=== PATIENT | female | born 1980 | race Caucasian/White ===

== ENCOUNTER 2016-10-02 03:18 | Emergency (ER) | payer MEDICARE, MEDICAID ==
[~2016-10-02] VITALS: Ht 154.9 cm; Wt 45.0 kg
[~2016-10-02 03:18] MED LIST: ATEN50TA PO; COUM2TAB PO; COUM4TAB PO; CREON24 PO; DILA4TAB2 PO; GABA300C5 PO; MEDR4TAB PO; META10CA PO; PRED50 PO; SERO100T PO
[2016-10-02 03:33] VITALS: BP 156/110; PULSE 105; RESP 18; TEMP 98.5; O2SAT 98
[2016-10-02] MEDS ORDERED: [UNRECOGNIZED DRUG - CODE] IV (03:44)
[2016-10-02] MEDS ORDERED: COUM4TAB PO (03:45)
[2016-10-02] MEDS ORDERED: KETAMINE HCL 500 MG/10 ML VIAL ONE (03:57)
[2016-10-02] MEDS ORDERED: ONDANSETRON HCL 4 MG/2 ML VIAL IV PUSH ONE (04:00)
[2016-10-02] MEDS ORDERED: SODIUM CHLOR 0.9% 1000 ML INJ 1,000 ML IV ONE (04:00)
[2016-10-02] MEDS ORDERED: KETAMINE HCL 500 MG/5 ML VIAL IV PUSH ONE (04:00)
--- NOTE | 2016-10-02 04:23 | PD ---
HPI Chief Complaint: Abdominal Pain Time Seen by Provider: 03:44 Travel History International Travel<30 days: No Contact w/Intl Traveler<30days: No Traveled to known affect area: No History of Present Illness HPI 36 old woman with chronic recurrent abdominal pain attributed to chronic pancreatitis presents to the emergency department with the same. She states she 's been having worsening epigastric abdominal pain for the past day, so 1 PM or so. She's had nausea with it. No fevers or chills. No change in her bowel movements. She was seen apparently at the [facility] was discharged is before coming here. History Past Medical History Narrative Medical Chronic pancreatitis Dermatomyositis polymyositis Solitary kidney Pancreatic Divisum Hypertension ADHD Chronic opiate use PNEUMOCCOCAL Vaccine (Year): 2006 Menopausal: Yes : 0 Para: 0 Social History Alcohol Use: No Tobacco Use: No Allergies-Medications (Allergen,Severity, Reaction): Coded Allergies: Nonsteroidal Anti-Inflammatory Agts (Verified Allergy, Severe, ONLY ONE KIDNEY, 10/02/16) Stadol (Verified Allergy, Severe, Hallucinations, 10/02/16) Sulfa (Verified Allergy, Severe, HIVES, 10/02/16) Reported Meds & Prescriptions Reported Meds & Active Scripts Active Reported Coumadin (Warfarin) 4 Mg Tab 4 Mg PO DAILY Gammagard S/D Iga < 1 ug/ml Inj (Immune Globulin (Human) Iga < 1 ug/ml Inj) 10 Gm Inj 12 Gm IV MONTHLY Medrol (Methylprednisolone) 4 Mg Tab 4 Mg PO TID Dilaudid (Hydromorphone HCl) 4 Mg Tab 4 Mg PO Q4-6H PRN Gabapentin 300 Mg Cap 300 Mg PO TID Creon (Amylase/Lipase/Protease) 24,000-76,000-120,000 Units Cap 2 Cap PO TIDPC Atenolol 50 Mg Tab 50 Mg PO BID Metadate CD 24 HR (Methylphenidate HCl) 10 Mg Capcr 10 Mg PO DAILY Seroquel (Quetiapine Fumarate) 100 Mg Tab 100 Mg PO HS Review of Systems Except as stated in HPI: all other systems reviewed are Neg Physical Exam Narrative GENERAL: Thin 36 year-old woman, writhing in the bed, screaming. SKIN: Warm and dry. HEAD: Atraumatic. Normocephalic. CARDIOVASCULAR: Regular rate and rhythm. No murmur appreciated. RESPIRATORY: No accessory muscle use. Clear to auscultation. Breath sounds equal bilaterally. GASTROINTESTINAL: Admits flat and soft. A lot of voluntary guarding, significant diffuse tenderness. MUSCULOSKELETAL: No obvious deformities. Decreased muscle bulk. NEUROLOGICAL: Awake and alert. No obvious cranial nerve deficits. Motor grossly within normal limits. Normal speech. PSYCHIATRIC: Appropriate mood and affect; insight and judgment normal. Data Data Last Documented VS Vital Signs Date Time Temp Pulse Resp B/P Pulse Ox O2 Delivery O2 Flow Rate FiO2 10/02/16 05:07 18 10/02/16 04:29 118 164/106 97 10/02/16 03:33 98.5 Orders Complete Blood Count With Diff (10/02/16 03:52) Comprehensive Metabolic Panel (10/02/16 03:52) Lipase (10/02/16 03:52) Iv Access Insert/Monitor (10/02/16 03:52) Sodium Chlor 0.9% 1000 Ml Inj (Ns 1000 M (10/02/16 04:00) Ketamine Inj (Ketalar Inj) (10/02/16 04:00) Ondansetron Inj (Zofran Inj) (10/02/16 04:00) Ketamine Inj (Ketalar Inj) (10/02/16 03:57) Hydromorphone Pf Inj (Dilaudid Pf Inj) (10/02/16 04:30) Labs Laboratory Tests Test 10/02/16 04:00 White Blood Count 12.6 TH/MM3 Red Blood Count 4.68 MIL/MM3 Hemoglobin 13.9 GM/DL Hematocrit 41.8 % Mean Corpuscular Volume 89.3 FL Mean Corpuscular Hemoglobin 29.7 PG Mean Corpuscular Hemoglobin 33.3 % Concent Red Cell Distribution Width 13.6 % Platelet Count 187 TH/MM3 Mean Platelet Volume 9.6 FL Neutrophils (%) (Auto) 75.8 % Lymphocytes (%) (Auto) 14.6 % Monocytes (%) (Auto) 8.4 % Eosinophils (%) (Auto) 0.4 % Basophils (%) (Auto) 0.8 % Neutrophils # (Auto) 9.6 TH/MM3 Lymphocytes # (Auto) 1.8 TH/MM3 Monocytes # (Auto) 1.1 TH/MM3 Eosinophils # (Auto) 0.0 TH/MM3 Basophils # (Auto) 0.1 TH/MM3 CBC Comment DIFF FINAL Differential Comment Sodium Level 146 MEQ/L Potassium Level 3.3 MEQ/L Chloride Level 113 MEQ/L Carbon Dioxide Level 21.4 MEQ/L Anion Gap 12 MEQ/L Blood Urea Nitrogen 18 MG/DL Creatinine 1.43 MG/DL Estimat Glomerular Filtration 42 ML/MIN Rate Random Glucose 129 MG/DL Calcium Level 7.5 MG/DL Total Bilirubin 0.4 MG/DL Aspartate Amino Transf 19 U/L (AST/SGOT) Alanine Aminotransferase 18 U/L (ALT/SGPT) Alkaline Phosphatase 50 U/L Total Protein 6.0 GM/DL Albumin 3.1 GM/DL Lipase 279 U/L [facility] Medical Decision Making Medical Screen Exam Complete: Yes Emergency Medical Condition: Yes Interpretation(s) LABS: CBC remarkable for mild leukocytosis. CMP remarkable for elevated creatinine. Lipase normal Differential Diagnosis Acute recurrent abdominal pain, pancreatitis, gastritis, opiate withdrawal, other Narrative Course Medical decision making 36 year-old woman chronic recurrent abdominal pain, treated chronic pancreatitis , presents with the same. Just discharged from the [facility] ED. Complaining of ongoing pain. Diagnosis Primary Impression: Chronic pain Qualified Code: G89.4 - Chronic pain syndrome Additional Impression: Pancreatitis, chronic Qualified Code: K86.1 - Chronic pancreatitis, unspecified pancreatitis type Additional Instructions: Continue Dilaudid as previously prescribed. Use Zofran if needed for nausea or vomiting. Follow-up with your primary doctor. Med/Other Pt SpecificInfo: Prescription(s) given Disposition: 01 DISCHARGE HOME Condition: Stable Jarred Caicedo MD Oct 02, 2016 04:23
[2016-10-02 04:29] VITALS: BP 164/106; PULSE 118; RESP 18; O2SAT 97
[2016-10-02] MEDS ORDERED: HYDROmorphone HCL PF 1 MG/ML VIAL IVS ONE ×2 (04:30→06:00)
[2016-10-02 04:55] LABS: AUTOMATED NEUTROPHIL # 9.6 TH/MM3 (1.8-7.7); BASOPHIL # 0.1 TH/MM3 (0-0.2); BASOPHIL % 0.8 % (0.0-2.0); EOSINOPHIL % 0.4 % (0.0-4.0); HEMATOCRIT 41.8 % (35.0-46.0); HEMO FLAGS DIFF FINAL; LYMPH % 14.6 % (9.0-44.0); LYMPHOCYTE # 1.8 TH/MM3 (1.0-4.8); MEAN CELL VOLUME 89.3 FL (80.0-100.0); MEAN CORPUSCULAR HEMOGLOBIN 29.7 PG (27.0-34.0); MEAN CORPUSCULAR HGB CONC 33.3 % (32.0-36.0); MONO % 8.4 % (0.0-8.0); NEUT % 75.8 % (16.0-70.0); PLATELET COUNT 187 TH/MM3 (150-450); RED BLOOD COUNT 4.68 MIL/MM3 (4.00-5.30); RED CELL DISTRIBUTION WIDTH 13.6 % (11.6-17.2); WHITE BLOOD COUNT 12.6 TH/MM3 (4.0-11.0)
[2016-10-02 05:23] LABS: ANION GAP 12 MEQ/L (5-15); AST (GOT) 19 U/L (15-37); BICARBONATE 21.4 MEQ/L (21.0-32.0); BLOOD UREA NITROGEN 18 MG/DL (7-18); CHLORIDE 113 MEQ/L (98-107); GLOMERULAR FILTRATION RATE 42 ML/MIN (>89); POTASSIUM 3.3 MEQ/L (3.5-5.1); SODIUM (NA) 146 MEQ/L (136-145)
[2016-10-02 05:26] LABS: ALKALINE PHOSPHATASE 50 U/L (45-117); ALT (GPT) 18 U/L (10-53); TOTAL BILIRUBIN ADULT 0.4 MG/DL (0.2-1.0)
[2016-10-02] MEDS ORDERED: ZOFR4TAB3 SL (05:56)
[2016-10-02] MEDS ORDERED: SODIUM CHLORIDE 0.9% FLUSH 5 ML FLUSH IVF PRN (06:00)
[2016-10-02 06:57] VITALS: RESP 18
[2017-02-02] MEDS ORDERED: MEDR4TAB PO (17:37)
[2017-02-02] MEDS ORDERED: NEUR300C PO (17:37)
[2017-02-02] MEDS ORDERED: HYDR4TAB PO (17:37)
[2017-02-02] MEDS ORDERED: ZOFR4TAB PO (18:53)
[2017-02-02] MEDS ORDERED: MEDR4PAK PO (18:53)
[2017-02-28] MEDS ORDERED: MEDR4PAK PO (16:42)
[2017-02-28] MEDS ORDERED: ZOFR4TAB3 SL (16:42)
[2017-02-28] MEDS ORDERED: PERC5TAB12 PO (16:42)
== END 2016-10-02 06:58 | disposition home or self-care (01) ==
LOC: NEPC 03:18
DX: G89.4 Chronic pain syndrome (principal); K86.1 Other chronic pancreatitis
CPT/HCPCS: 80053; 83690; 85025; 96361; 96374; 96375; 96376; 99284; J1170; J1642; J2405; J7030

== ENCOUNTER 2016-10-18 23:40 | Emergency (ER) | payer MEDICARE, MEDICAID ==
[~2016-10-18] VITALS: Ht 154.9 cm; Wt 37.5 kg
[~2016-10-18 23:40] MED LIST changes: -COUM2TAB PO; -PRED50 PO; +ZOFR4TAB3 SL; +[UNRECOGNIZED DRUG - CODE] IV
[2016-10-18 23:44] VITALS: BP 180/122; PULSE 96; RESP 24; TEMP 98; O2SAT 95
[2016-10-19] MEDS ORDERED: SODIUM CHLOR 0.9% 1000 ML INJ 1,000 ML IV SCH (01:09)
[2016-10-19] MEDS ORDERED: SODIUM CHLORIDE 0.9% FLUSH 5 ML FLUSH IVF PRN (01:15)
[2016-10-19] MEDS ORDERED: ONDANSETRON HCL 4 MG/2 ML VIAL IVP ONE (01:15)
[2016-10-19] MEDS ORDERED: MORPHINE SULFATE 4 MG/ML INJ IV PUSH ONE (01:15)
--- NOTE | 2016-10-19 01:45 | PD ---
HPI Chief Complaint: Abdominal Pain Time Seen by Provider: 00:11 Travel History International Travel<30 days: No Contact w/Intl Traveler<30days: No Traveled to known affect area: No History of Present Illness HPI The patient is a 36 year old female who presents to the [facility] emergency department with a history of abdominal pain that began again at 2 PM today. She reports that it is present in the left upper quadrant of the abdomen and radiates through to her back. The patient does have a history of chronic recurrent abdominal pain and a history of pancreatitis. She reports that she was seen over at [facility] for evaluation earlier this evening and had laboratory studies done as well as a CT scan of the abdomen and pelvis for evaluation. The patient reports that she was diagnosed with pancreatitis, however the hospitalist would not admitted to the hospital. She reports that she's had nausea and vomiting 2. She reports that she was provided morphine and Zofran for pain and nausea respectively at that facility. She denies having any diarrhea. Her last bowel movement was earlier this morning. She denies having any blood in her stool or black or tarry stools. The patient denies any recent fevers, cough, congestion, neck pain, chest pain, shortness of breath, diarrhea, urinary symptoms, or neurologic symptoms. The patient reports that she does administer feedings by her feeding tube at night, 4 cans of shake. She reports that throughout the day she is able to eat orally. [facility] Past Medical History Narrative Medical The patient's past medical history is significant for chronic abdominal pain, chronic pancreatitis, history of pancreatic divisum, history of dermatomyositis , polymyositis, solitary kidney, hypertension, attention deficit hyperactivity disorder, history of chronic pain with chronic opiate use Hx Anticoagulant Therapy: Yes ADHD: Yes Anemia: Yes Arthritis: No Asthma: No Autoimmune Disease: Yes (panceatisis ) Blood Disorders: No Anxiety: No Depression: Yes Heart Rhythm Problems: No Cancer: No Cardiovascular Problems: Yes High Cholesterol: No Chemotherapy: No Chest Pain: No Congestive Heart Failure: No COPD: Yes Cerebrovascular Accident: No Diabetes: No Diminished Hearing: No Diverticulitis: Yes Endocrine: No Gastrointestinal Disorders: Yes (H/O ABD PAIN, INGUINAL HERNIA REPAIR) GERD: No Genitourinary: Yes (only has left kidney ) Headaches: No Hiatal Hernia: No Hypertension: Yes Immune Disorder: Yes (DERMATOMYOSITIS) Inguinal Hernia: Yes (2005) Implanted Vascular Access Dvce: Yes (PORT-RIGHT CHEST) Kidney Stones: No Musculoskeletal: Yes (polymyositis) Neurologic: Yes (neuromuscular diseases) Psychiatric: No Reproductive: Yes (ENDOMETRIOSIS) Respiratory: Yes Integumentary: Yes Immunizations Current: Yes Migraines: No Pancreatitis: Yes Pneumonia: Yes Radiation Therapy: No Renal Failure: No Seizures: No Sickle Cell Disease: No Sleep Apnea: No Thyroid Disease: No Ulcer: No PNEUMOCCOCAL Vaccine (Year): 2006 ?: Not Menopausal: Yes : 0 Para: 0 Miscarriage: 0 : 0 Ovarian Cysts: Yes (2004) Past Surgical History Narrative Surgical The patient has had an [id number] placed, and creatinine extent placed, hysterectomy, ovarian cyst resection, right inguinal hernia repair, feeding tube placement. Abdominal Surgery: Yes (INGUINAL HERNIA REPAIR RT;G-J TUBE PLACE) AICD: No Arteriovenous Shunt: No Body Medical Devices: stent in pancreatus and gi feeding tube Cardiac Surgery: No Cholecystectomy: Yes Ear Surgery: No Endocrine Surgery: No Eye Surgery: No Genitourinary Surgery: No Gynecologic Surgery: Yes (OVARIAN CYST REMOVAL 2004, Hysterectomy) Hysterectomy: Yes Insulin Pump: No Joint Replacement: No Neurologic Surgery: No Oral Surgery: Yes (tooth extractions) Pacemaker: No Thoracic Surgery: No Other Surgery: Yes (STENT IN PANCREAS, PORT R SUBCLAVIAN PLACEMENT ) Social History Alcohol Use: No Tobacco Use: No Substance Use: No Allergies-Medications (Allergen,Severity, Reaction): Coded Allergies: Nonsteroidal Anti-Inflammatory Agts (Verified Allergy, Severe, ONLY ONE KIDNEY, 10/18/16) Stadol (Verified Allergy, Severe, Hallucinations, 10/18/16) Sulfa (Verified Allergy, Severe, HIVES, 10/18/16) Reported Meds & Prescriptions Reported Meds & Active Scripts Active Keflex (Cephalexin) 500 Mg Cap 500 Mg PO Q8H Phenergan Supp (Promethazine HCl) 12.5 Mg Supp 12.5 Mg RECTAL Q6H PRN Zofran Odt (Ondansetron Odt) 4 Mg Tab 4 Mg SL Q8HR PRN May substitute non-ODT form. Reported Coumadin (Warfarin) 4 Mg Tab 4 Mg PO DAILY Gammagard S/D Iga < 1 ug/ml Inj (Immune Globulin (Human) Iga < 1 ug/ml Inj) 10 Gm Inj 12 Gm IV MONTHLY Medrol (Methylprednisolone) 4 Mg Tab 4 Mg PO TID Dilaudid (Hydromorphone HCl) 4 Mg Tab 4 Mg PO Q4-6H PRN Gabapentin 300 Mg Cap 300 Mg PO TID Creon (Amylase/Lipase/Protease) 24,000-76,000-120,000 Units Cap 2 Cap PO TIDPC Atenolol 50 Mg Tab 50 Mg PO BID Metadate CD 24 HR (Methylphenidate HCl) 10 Mg Capcr 10 Mg PO DAILY Seroquel (Quetiapine Fumarate) 100 Mg Tab 100 Mg PO HS Review of Systems Except as stated in HPI: all other systems reviewed are Neg General / Constitutional: No: Fever Eyes: No: Visual changes HENT: No: Headaches Cardiovascular: No: Chest Pain or Discomfort Respiratory: No: Shortness of Breath Gastrointestinal: Positive: Nausea, Vomiting, Abdominal Pain, No: Diarrhea, Constipation, Changes in Bowel Habits, Indigestion, Loss of Appetite Genitourinary: No: Dysuria Musculoskeletal: No: Pain Skin: No Rash Neurologic: No: Weakness Psychiatric: No: Depression Endocrine: No: Polydipsia Hematologic/Lymphatic: No: Easy Bruising Physical Exam Narrative General: The patient is a well-developed thin appearing female, reportedly in significant pain, standing beside the bed on my arrival to the room. Head and Neck exam: Head is normocephalic atraumatic. Eyes: EOMI, pupils are equal round and reactive to light. Nose: Midline septum with pink mucous membranes Mouth: Dentition unremarkable. Moist mucus membranes. Posterior oropharynx is not erythematous. No tonsillar hypertrophy. Uvula midline. Airway patent. Neck: No palpable lymphadenopathy. No nuchal rigidity. No thyromegaly. Cardiovascular: Regular rate and rhythm without murmurs, gallops, or rubs. Lungs: Clear to auscultation bilaterally. No wheezes, rhonchi, or rales. Abdomen: Soft, with reported discomfort on palpation in the midepigastric and left upper quadrant of the abdomen. No other tenderness on palpation of the other 3 quadrants of the abdomen. No tenderness on palpation of McBurney's point. No guarding, rebound, or rigidity. Normal bowel sounds are audible. Negative Prasad's sign. She has a feeding tube in place in the left upper quadrant of the abdomen that appears to be in good repair. Extremities: No clubbing, cyanosis, or edema. 2+ pulses in all 4 extremities. No calf tenderness on palpation. Back: No spinous process tenderness to palpation. No costovertebral angle tenderness to palpation. Neurologic Exam: Grossly nonfocal. Skin Exam: No rash noted. Intact skin that is warm and dry. Data Data Last Documented VS Vital Signs Date Time Temp Pulse Resp B/P Pulse Ox O2 Delivery O2 Flow Rate FiO2 10/19/16 03:10 107 22 98 10/19/16 03:10 176/92 10/18/16 23:44 98.0 Room Air Orders Comprehensive Metabolic Panel (10/19/16 01:09) Lipase (10/19/16 01:09) Prothrombin Time / Inr (Pt) (10/19/16 01:09) Iv Access Insert/Monitor (10/19/16 01:09) Ecg Monitoring (10/19/16 01:09) Oximetry (10/19/16 01:09) Morphine Inj (Morphine Inj) (10/19/16 01:15) Ondansetron Inj (Zofran Inj) (10/19/16 01:15) Sodium Chlor 0.9% 1000 Ml Inj (Ns 1000 M (10/19/16 01:09) Sodium Chloride 0.9% Flush (Ns Flush) (10/19/16 01:15) Sodium Chlorid 0.9% 500 Ml Inj (Ns 500 M (10/19/16 03:00) Ceftriaxone Inj (Rocephin Inj) (10/19/16 03:00) Hydromorphone Pf Inj (Dilaudid Pf Inj) (10/19/16 03:00) Heparin Central Flush (Heparin Central F (10/19/16 03:00) Labs Laboratory Tests Test 10/19/16 01:45 Prothrombin Time 12.2 SEC Prothromb Time International 1.1 RATIO Ratio Sodium Level 143 MEQ/L Potassium Level 3.8 MEQ/L Chloride Level 107 MEQ/L Carbon Dioxide Level 28.3 MEQ/L Anion Gap 8 MEQ/L Blood Urea Nitrogen 15 MG/DL Creatinine 1.61 MG/DL Estimat Glomerular Filtration 37 ML/MIN Rate Random Glucose 92 MG/DL Calcium Level 8.4 MG/DL Total Bilirubin 0.3 MG/DL Aspartate Amino Transf 29 U/L (AST/SGOT) Alanine Aminotransferase 21 U/L (ALT/SGPT) Alkaline Phosphatase 53 U/L Total Protein 7.4 GM/DL Albumin 3.6 GM/DL Lipase 315 U/L MDM Medical Decision Making Medical Screen Exam Complete: Yes Emergency Medical Condition: Yes Medical Record Reviewed: Yes Interpretation(s) Laboratory Tests Test 10/19/16 01:45 Prothrombin Time 12.2 SEC Prothromb Time International 1.1 RATIO Ratio Sodium Level 143 MEQ/L Potassium Level 3.8 MEQ/L Chloride Level 107 MEQ/L Carbon Dioxide Level 28.3 MEQ/L Anion Gap 8 MEQ/L Blood Urea Nitrogen 15 MG/DL Creatinine 1.61 MG/DL Estimat Glomerular Filtration 37 ML/MIN Rate Random Glucose 92 MG/DL Calcium Level 8.4 MG/DL Total Bilirubin 0.3 MG/DL Aspartate Amino Transf 29 U/L (AST/SGOT) Alanine Aminotransferase 21 U/L (ALT/SGPT) Alkaline Phosphatase 53 U/L Total Protein 7.4 GM/DL Albumin 3.6 GM/DL Lipase 315 U/L Differential Diagnosis Acute pancreatitis, versus exacerbation of chronic pancreatitis, versus pyelonephritis, versus kidney stone, versus peptic ulcer disease, versus acid reflux Narrative Course During the course of the patients emergency department visit, the patients history, examination, and differential diagnosis were reviewed with the patient. The patient had IV access obtained and blood work sent for analysis. The patient was placed on a assembler finger buffs with oximetry and blood pressure monitoring. The patient signed consent for us to obtain records from the other facility. The patient was provided normal saline 1 L IV fluid bolus, morphine for pain, Zofran for nausea. The patient had continued pain and was given hydromorphone 1 mg IV, normal saline another 500 mL bolus was administered 1. The patient's records from the other facility arrived and were reviewed. The patient at that facility had a white count of 15.3, hemoglobin 15.1, platelets 273 with neutrophil percent of 81, lymphocytes 6, monocytes 7, urinalysis reveals 2+ protein 1 WBC less than 1 rbc 2+ bacteria trace squamous epithelial cells, culture indicated. CT scan of the abdomen and pelvis done at that facility revealed no hydronephrosis or nephrolithiasis, uncomplicated colonic diverticulosis, post right nephrectomy, gastrojejunostomy tube appears within adequate position. No other acute abnormality. The patients laboratory studies at this facility revealed a CMP remarkable for creatinine of 1.61 compared to previously at 1.43, LFTs within normal limits, lipase within normal limits at 3:15, INR 1.1. The patient's results were discussed with her, her questions were answered. The patient denies being placed on an antibiotic at the other facility. The patient will be discharged home on antibiotic. The patient's symptoms are likely related to an exacerbation of her chronic pain. The patient was instructed regarding the importance of pushing fluids and getting plenty of rest. The patient reports that she has Zofran at home for nausea, hydromorphone at home for pain. The patient will be given a prescription for Phenergan suppositories to be used as needed for nausea if it is uncontrolled with Zofran. The patient is resting comfortably and feels better, is alert and in no distress. The patients results and examination findings were discussed with the patient. The repeat examination is unremarkable and benign. The history, exam, diagnostic testing, and current condition do not suggest any significant pathology to warrant further testing, continued ED treatment, admission, or surgical evaluation at this point. The vital signs have been stable. The patient does not have uncontrollable pain, intractable vomiting, or other significant symptoms. The patient's condition is stable and appropriate for discharge. The patient will pursue further outpatient evaluation with a primary care physician or other designated or consulting physician as indicated in the discharge instructions. The patient expressed understanding and was agreeable with this plan. Diagnosis Primary Impression: Abdominal pain Qualified Code: R10.12 - Left upper quadrant pain Additional Impression: Vomiting Qualified Code: R11.2 - Non-intractable vomiting with nausea, unspecified vomiting type Referrals: Primary Care Physician Patient Instructions: Abdominal Pain (ED), General Instructions, Urinary Tract Infection in Women (ED) Med/Other Pt SpecificInfo: Prescription(s) given Scripts Cephalexin (Keflex)500 Mg [id number] Mg PO Q8H #30 CAP Ref 0 Prov:Adrienne Dubois MD 10/19/16 Promethazine Supp (Phenergan Supp)12.5 Mg Supp12.5 Mg RECTAL Q6H PRN (NAUSEA OR VOMITING) #7 SUPP Ref 0 Prov:Adrienne Dubois MD 10/19/16 Disposition: DISCHARGE HOME Condition: Stable Adrienne Dubois MD Oct 19, 2016 01:45
[2016-10-19 02:05] LABS: INTERNATIONAL NORMALIZED RATIO 1.1 RATIO; PROTHROMBIN TIME - PATIENT 12.2 SEC (9.8-11.6)
[2016-10-19 02:08] LABS: ALKALINE PHOSPHATASE 53 U/L (45-117); TOTAL BILIRUBIN ADULT 0.3 MG/DL (0.2-1.0)
[2016-10-19 02:11] LABS: ALT (GPT) 21 U/L (10-53); ANION GAP 8 MEQ/L (5-15); AST (GOT) 29 U/L (15-37); BICARBONATE 28.3 MEQ/L (21.0-32.0); BLOOD UREA NITROGEN 15 MG/DL (7-18); CHLORIDE 107 MEQ/L (98-107); GLOMERULAR FILTRATION RATE 37 ML/MIN (>89); POTASSIUM 3.8 MEQ/L (3.5-5.1); SODIUM (NA) 143 MEQ/L (136-145)
[2016-10-19] MEDS ORDERED: PROM2SUP RECTAL (02:55)
[2016-10-19] MEDS ORDERED: CEPH-460 PO (02:55)
[2016-10-19] MEDS ORDERED: SODIUM CHLORID 0.9% 500 ML INJ 500 ML IV ONE (03:00)
[2016-10-19] MEDS ORDERED: cefTRIAXone INJ 1,000 MG in SODIUM CHLORIDE 0.9% INJ 100 ML IV ONE (03:00)
[2016-10-19] MEDS ORDERED: HYDROmorphone HCL PF 1 MG/ML VIAL IV PUSH ONE (03:00)
[2016-10-19 03:10] VITALS: BP 176/92; PULSE 100; PULSE 107; RESP 18; RESP 22; O2SAT 98; O2SAT 99
[2017-02-02] MEDS ORDERED: MEDR4TAB PO (17:37)
[2017-02-02] MEDS ORDERED: HYDR4TAB PO (17:37)
[2017-02-02] MEDS ORDERED: NEUR300C PO (17:37)
[2017-02-02] MEDS ORDERED: ZOFR4TAB PO (18:53)
[2017-02-02] MEDS ORDERED: MEDR4PAK PO (18:53)
[2017-02-28] MEDS ORDERED: PERC5TAB12 PO (16:42)
[2017-02-28] MEDS ORDERED: MEDR4PAK PO (16:42)
[2017-02-28] MEDS ORDERED: ZOFR4TAB3 SL (16:42)
== END 2016-10-19 03:47 | disposition home or self-care (01) ==
LOC: NEPE 23:40
DX: R10.12 Left upper quadrant pain (principal); R11.2 Nausea with vomiting, unspecified; I10 Essential (primary) hypertension; F90.9 Attention-deficit hyperactivity disorder, unspecified type; Z79.01 Long term (current) use of anticoagulants; D64.9 Anemia, unspecified; J44.9 Chronic obstructive pulmonary disease, unspecified; Z87.19 Personal history of other diseases of the digestive system
CPT/HCPCS: 80053; 83690; 84703; 85610; 96361; 96365; 96375; 99284; J0696; J1170; J1642; J2270; J2405; J7030; J7040

== ENCOUNTER 2016-12-23 13:46 | Emergency (ER) | payer MEDICARE, MEDICAID ==
[~2016-12-23] VITALS: Ht 154.9 cm; Wt 38.0 kg
[~2016-12-23 13:46] MED LIST changes: +CEPH-460 PO; +PROM2SUP RECTAL
[2016-12-23 13:49] VITALS: BP 227/123; PULSE 148; RESP 24; TEMP 98.3; O2SAT 99
--- NOTE | 2016-12-23 14:04 | PD ---
Physical Exam Date Seen by Provider: Dec 23, 2016 Time Seen by Provider: 14:00 Narrative Pt is a 36 year old female presenting to the ED with c/o abdominal pain, nausea and vomiting. Symptoms started Wednesday. Pain is in the LUQ radiating to her back. pain is a 10/10. Pt has dilaudid and zofran at home for chronic pancreatitis. Pt waited because she thought it would ease up. Reports chills and diaphoresis. Pt born with only one kidney, denies any renal issues otherwise. Hysterectomy 4 years ago. Pt appears very uncomfortable, BP markedly elevated. Accompanied by family. Data Data Last Documented VS Vital Signs Date Time Temp Pulse Resp B/P Pulse Ox O2 Delivery O2 Flow Rate FiO2 12/23/16 13:49 98.3 148 24 227/123 99 Room Air MDM Supervised Visit with JOCE: Pebbles Orellana Dec 23, 2016 14:04
--- NOTE | 2016-12-23 14:57 | PD ---
HPI Chief Complaint: abd pain Time Seen by Provider: 14:56 Travel History International Travel<30 days: No Contact w/Intl Traveler<30days: No Traveled to known affect area: No History of Present Illness HPI 36-year-old female with history of chronic pancreatitis which she states is autoimmune, hypertension, COPD, diverticulitis, pancreatitis, gastroparesis with PEG tube in place, cholecystectomy, polymyositis presents to emergency department for evaluation of left upper quadrant abdominal pain. Patient states that she has been driving all night going [facility], [place] and [place] her most recent trying to get pain medication for her abdominal pain however she states they have not given her anything. She is requesting IV Dilaudid or IV morphine by the name. She states that "Toradol doesn't work." Patient states she has been nauseous and unable to keep her prescribed Dilaudid down. Patient states the pain is 10 out of 10, and constant. No hematemesis or hematochezia. No changes in bowel. No fever or chills. No other symptoms to report PFSH Past Medical History Hx Anticoagulant Therapy: Yes ADHD: Yes Anemia: Yes Arthritis: No Asthma: No Autoimmune Disease: Yes (panceatisis ) Blood Disorders: No Anxiety: No Depression: Yes Heart Rhythm Problems: No Cancer: No Cardiovascular Problems: Yes High Cholesterol: No Chemotherapy: No Chest Pain: No Congestive Heart Failure: No COPD: Yes Cerebrovascular Accident: No Diabetes: No Diminished Hearing: No Diverticulitis: Yes Endocrine: No Gastrointestinal Disorders: Yes (H/O ABD PAIN, INGUINAL HERNIA REPAIR) GERD: No Genitourinary: Yes (only has left kidney ) Headaches: No Hiatal Hernia: No Hypertension: Yes Immune Disorder: Yes (DERMATOMYOSITIS) Inguinal Hernia: Yes (2005) Implanted Vascular Access Dvce: Yes (PORT-RIGHT CHEST) Kidney Stones: No Musculoskeletal: Yes (polymyositis) Neurologic: Yes (neuromuscular diseases) Psychiatric: No Reproductive: Yes (ENDOMETRIOSIS) Respiratory: No Integumentary: Yes Immunizations Current: Yes Migraines: No Pancreatitis: Yes Pneumonia: Yes Radiation Therapy: No Renal Failure: No Seizures: No Sickle Cell Disease: No Sleep Apnea: No Thyroid Disease: No Ulcer: No PNEUMOCCOCAL Vaccine (Year): 2006 ?: Not LMP: NONE Menopausal: Yes : 0 Para: 0 Miscarriage: 0 : 0 Ovarian Cysts: Yes (2004) Past Surgical History Abdominal Surgery: Yes (INGUINAL HERNIA REPAIR RT;G-J TUBE PLACE) AICD: No Arteriovenous Shunt: No Body Medical Devices: stent in pancreatus and gi feeding tube Cardiac Surgery: No Cholecystectomy: Yes Ear Surgery: No Endocrine Surgery: No Eye Surgery: No Genitourinary Surgery: No Gynecologic Surgery: Yes (OVARIAN CYST REMOVAL 2004, Hysterectomy) Hysterectomy: Yes (4 YEARS AGO FOR ENDOMETRIOSIS.) Insulin Pump: No Joint Replacement: No Neurologic Surgery: No Oral Surgery: Yes (tooth extractions) Pacemaker: No Thoracic Surgery: No Other Surgery: Yes (STENT IN PANCREAS, PORT R SUBCLAVIAN PLACEMENT ) Social History Alcohol Use: No Tobacco Use: No Substance Use: No Allergies-Medications (Allergen,Severity, Reaction): Coded Allergies: Nonsteroidal Anti-Inflammatory Agts (Verified Allergy, Severe, ONLY ONE KIDNEY, 10/18/16) Stadol (Verified Allergy, Severe, Hallucinations, 10/18/16) Sulfa (Verified Allergy, Severe, HIVES, 10/18/16) Reported Meds & Prescriptions Reported Meds & Active Scripts Active Phenergan Supp (Promethazine HCl) 12.5 Mg Supp 12.5 Mg RECTAL Q6H PRN Zofran Odt (Ondansetron Odt) 4 Mg Tab 4 Mg SL Q8HR PRN May substitute non-ODT form. Reported Warfarin 3 Mg Tab 3 Mg PO DAILY Gammagard S/D Iga < 1 ug/ml Inj (Immune Globulin (Human) Iga < 1 ug/ml Inj) 10 Gm Inj 12 Gm IV MONTHLY Medrol (Methylprednisolone) 4 Mg Tab 4 Mg PO TID Dilaudid (Hydromorphone HCl) 4 Mg Tab 4 Mg PO Q4-6H PRN Gabapentin 300 Mg Cap 300 Mg PO TID Creon (Amylase/Lipase/Protease) 24,000-76,000-120,000 Units Cap 2 Cap PO TIDPC Atenolol 50 Mg Tab 50 Mg PO BID Metadate CD 24 HR (Methylphenidate HCl) 10 Mg Capcr 10 Mg PO DAILY Seroquel (Quetiapine Fumarate) 100 Mg Tab 100 Mg PO HS Warfarin 4 Mg Tab 4 Mg PO DAILY Review of Systems Except as stated in HPI: all other systems reviewed are Neg Physical Exam Narrative GENERAL: Thin female patient, sitting up in the bed, intermittently moaning and crying when staff walk by. SKIN: Focused skin assessment warm/dry. HEAD: Atraumatic. Normocephalic. EYES: Pupils equal and round. No scleral icterus. No injection or drainage. ENT: No nasal bleeding or discharge. Mucous membranes pink and moist. NECK: Trachea midline. No JVD. CARDIOVASCULAR: Tachycardic rate and rhythm. RESPIRATORY: No accessory muscle use. Clear to auscultation. Breath sounds equal bilaterally. GASTROINTESTINAL: Abdomen soft, nondistended. G-tube in place. Patient will not allow me to palpate her abdomen. Hepatic and splenic margins not palpable. MUSCULOSKELETAL: No obvious deformities. No clubbing. No cyanosis. No edema. Right lower extremity cast in place. NEUROLOGICAL: Awake and alert. No obvious cranial nerve deficits. Motor grossly within normal limits. Normal speech. . Data Data Last Documented VS Vital Signs Date Time Temp Pulse Resp B/P Pulse Ox O2 Delivery O2 Flow Rate FiO2 12/23/16 13:49 98.3 148 24 227/123 99 Room Air Orders Complete Blood Count With Diff (12/23/16 14:04) Comprehensive Metabolic Panel (12/23/16 14:04) Lipase (12/23/16 14:04) Iv Access Insert/Monitor (12/23/16 14:53) Sodium Chlor 0.9% 1000 Ml Inj (Ns 1000 M (12/23/16 15:00) Prochlorperazine Inj (Compazine Inj) (12/23/16 15:00) Diphenhydramine Inj (Benadryl Inj) (12/23/16 15:00) Acetaminophen 650 Mg/20 Ml Liq (Tylenol (12/23/16 16:45) Heparin Central Flush (Heparin Central F (12/23/16 17:15) Labs Laboratory Tests Test 12/23/16 15:35 White Blood Count 11.9 TH/MM3 Red Blood Count 4.76 MIL/MM3 Hemoglobin 13.7 GM/DL Hematocrit 42.6 % Mean Corpuscular Volume 89.4 FL Mean Corpuscular Hemoglobin 28.7 PG Mean Corpuscular Hemoglobin 32.1 % Concent Red Cell Distribution Width 13.6 % Platelet Count 215 TH/MM3 Mean Platelet Volume 9.4 FL Neutrophils (%) (Auto) 95.9 % Lymphocytes (%) (Auto) 1.5 % Monocytes (%) (Auto) 2.1 % Eosinophils (%) (Auto) 0.0 % Basophils (%) (Auto) 0.5 % Neutrophils # (Auto) 11.4 TH/MM3 Lymphocytes # (Auto) 0.2 TH/MM3 Monocytes # (Auto) 0.2 TH/MM3 Eosinophils # (Auto) 0.0 TH/MM3 Basophils # (Auto) 0.1 TH/MM3 CBC Comment DIFF FINAL Differential Comment Sodium Level 142 MEQ/L Potassium Level 3.8 MEQ/L Chloride Level 110 MEQ/L Carbon Dioxide Level 22.5 MEQ/L Anion Gap 10 MEQ/L Blood Urea Nitrogen 11 MG/DL Creatinine 1.55 MG/DL Estimat Glomerular Filtration 38 ML/MIN Rate Random Glucose 135 MG/DL Calcium Level 8.8 MG/DL Total Bilirubin 0.5 MG/DL Aspartate Amino Transf 38 U/L (AST/SGOT) Alanine Aminotransferase 26 U/L (ALT/SGPT) Alkaline Phosphatase 68 U/L Total Protein 6.8 GM/DL Albumin 3.5 GM/DL Lipase 406 U/L [facility] Medical Decision Making Medical Screen Exam Complete: Yes Emergency Medical Condition: Yes Medical Record Reviewed: Yes Differential Diagnosis Acute on chronic pancreatitis versus gastritis versus peritonitis versus narcotic seeking Narrative Course 36-year-old female presents to the emergency department requesting IV Dilaudid or IV morphine by name for pain control of her pancreatitis which is chronic. This is the third hospital the patient can name that she has been to within the last 8 hours but states she has been driving "all night" going to hospitals trying to get pain control for this. Patient has not vomited since being in the emergency department room. She is given Compazine and Benadryl to help with her nausea. She is given IV fluids. I discussed the patient of my attending physician who is familiar with her and states she will not be getting any narcotic pain control here in this emergency department. I explained this to the patient and offered Toradol which she states she is not allergic to but states that it does not work. I offered her Tylenol which she refused. Patient is tachycardic and hypertensive initially. After IV fluid bolus, heart rate does decrease to 103 bpm. I did go ahead and order Tylenol for pain control but the patient is refusing this. After review of the lab work, there is no significant leukocytosis. CMP is without acute concern. Her lipase is elevated at 406 however it has been this in the past with a history of chronic pancreatitis this would likely be expected. I discussed this with the attending physician. He agrees there is no acute findings to support hospitalization. This was again discussed with the patient who did request to speak with the physician, demanding that she needed "IV Dilaudid or morphine" for pain control. My attending physician states that he will not be discussing this any further with her. The patient is made aware of this. She is encouraged to take her prescribed Dilaudid as she has not had any episodes of vomiting since she has been in the emergency department. He has a prescription for Zofran at home She'll be discharged at this time. Diagnosis Primary Impression: Pancreatitis, chronic Qualified Code: K86.1 - Chronic pancreatitis, unspecified pancreatitis type Referrals: [employer] Primary Care Physician Patient Instructions: General Instructions, Pancreatitis (ED) Additional Instructions: Continue medication as already prescribed Follow-up with your primary care provider Return immediately with any acute worsening of symptoms Med/Other Pt SpecificInfo: No Change to Meds Disposition: 01 DISCHARGE HOME Condition: Stable Mamie Loco Dec 23, 2016 14:56
[2016-12-23] MEDS ORDERED: diphenhydrAMINE HCL 50 MG/ML VIAL IV PUSH ONE (15:00)
[2016-12-23] MEDS ORDERED: SODIUM CHLOR 0.9% 1000 ML INJ 1,000 ML IV ONE (15:00)
[2016-12-23] MEDS ORDERED: PROCHLORPERAZINE INJ 10 MG/2 ML VIAL IV PUSH ONE (15:00)
[2016-12-23] MEDS ORDERED: WARF-58 PO (15:30)
[2016-12-23] MEDS ORDERED: WARF-20 PO (15:30)
[2016-12-23 15:46] LABS: AUTOMATED NEUTROPHIL # 11.4 TH/MM3 (1.8-7.7); BASOPHIL # 0.1 TH/MM3 (0-0.2); BASOPHIL % 0.5 % (0.0-2.0); HEMATOCRIT 42.6 % (35.0-46.0); HEMO FLAGS DIFF FINAL; LYMPH % 1.5 % (9.0-44.0); LYMPHOCYTE # 0.2 TH/MM3 (1.0-4.8); MEAN CELL VOLUME 89.4 FL (80.0-100.0); MEAN CORPUSCULAR HEMOGLOBIN 28.7 PG (27.0-34.0); MEAN CORPUSCULAR HGB CONC 32.1 % (32.0-36.0); MONO % 2.1 % (0.0-8.0); NEUT % 95.9 % (16.0-70.0); PLATELET COUNT 215 TH/MM3 (150-450); RED BLOOD COUNT 4.76 MIL/MM3 (4.00-5.30); RED CELL DISTRIBUTION WIDTH 13.6 % (11.6-17.2); WHITE BLOOD COUNT 11.9 TH/MM3 (4.0-11.0)
[2016-12-23 16:15] LABS: ALT (GPT) 26 U/L (10-53); ANION GAP 10 MEQ/L (5-15); AST (GOT) 38 U/L (15-37); BICARBONATE 22.5 MEQ/L (21.0-32.0); BLOOD UREA NITROGEN 11 MG/DL (7-18); CHLORIDE 110 MEQ/L (98-107); GLOMERULAR FILTRATION RATE 38 ML/MIN (>89); POTASSIUM 3.8 MEQ/L (3.5-5.1); SODIUM (NA) 142 MEQ/L (136-145)
[2016-12-23 16:16] LABS: ALKALINE PHOSPHATASE 68 U/L (45-117); TOTAL BILIRUBIN ADULT 0.5 MG/DL (0.2-1.0)
[2016-12-23] MEDS ORDERED: ACETAMINOPHEN 650 MG/20.3 ML UDC PEG ONE (16:45)
[2017-02-02] MEDS ORDERED: MEDR4TAB PO (17:37)
[2017-02-02] MEDS ORDERED: NEUR300C PO (17:37)
[2017-02-02] MEDS ORDERED: HYDR4TAB PO (17:37)
[2017-02-02] MEDS ORDERED: MEDR4PAK PO (18:53)
[2017-02-02] MEDS ORDERED: ZOFR4TAB PO (18:53)
[2017-02-28] MEDS ORDERED: MEDR4PAK PO (16:42)
[2017-02-28] MEDS ORDERED: PERC5TAB12 PO (16:42)
[2017-02-28] MEDS ORDERED: ZOFR4TAB3 SL (16:42)
== END 2016-12-23 17:36 | disposition home or self-care (01) ==
LOC: NEPD 13:46
DX: K86.1 Other chronic pancreatitis (principal); R00.0 Tachycardia, unspecified; I10 Essential (primary) hypertension; D64.9 Anemia, unspecified; J44.9 Chronic obstructive pulmonary disease, unspecified; Z79.01 Long term (current) use of anticoagulants
CPT/HCPCS: 80053; 83690; 85025; 96361; 96374; 96375; 99284; J0780; J1200; J1642; J7030